=== PATIENT | female | born 1950 | race Caucasian/White ===

== ENCOUNTER 2019-08-20 16:05 | Inpatient (IN) | payer OTHER ==
--- NOTE | 2019-08-20 17:28 | PDOC ---
History of Present Illness - General Chief Complaint: Ingestion Stated Complaint: OVERDOSE Time Seen by Provider: 08/20/19 17:01 History Source: EMS, Custodial Records - History of Present Illness Initial Comments: 08/20/19 17:23 69 yo F PMH MDD w/ severe psychotic features, catatonia, Alzheimer's disease, chronic constipation, presenting after ingestion of Yankee candle fragrance sphere. Per EMS, they already contacted Poison Control, who stated that they would like the patient monitored for N/V. Patient nonverbal, unable to provide any information. Past History - Past Medical History Allergies/Adverse Reactions: Allergies Allergy/AdvReac Type Severity Reaction Status Date / Time No Known Allergies Allergy Verified 08/20/19 16:08 Home Medications: Ambulatory Orders Citalopram Hydrobromide [Citalopram HBr] 0.5 mg PO DAILY 08/20/19 Docusate Sodium [Colace] 300 mg PO DAILY 08/20/19 Multivit with Iron,Minerals [Complete Senior] 1 each PO DAILY 08/20/19 COPD: No Dementia: Yes Psychiatric Problems: Yes (PSYCHOSIS DISORDER/ ANXIETY) - Psycho Social/Smoking Cessation Hx Smoking History: Unknown if ever smoked Have you smoked in the past 12 months: No Information on smoking cessation initiated: No Hx Alcohol Use: No Drug/Substance Use Hx: No Review of Systems - Review of Systems Able to Perform ROS?: No (nonverbal) *Physical Exam - Vital Signs Last Vital Signs Temp Pulse Resp BP Pulse Ox 97 H 18 131/75 97 08/20/19 16:09 08/20/19 16:09 08/20/19 16:09 08/20/19 16:09 - Physical Exam Comments: 08/20/19 17:30 Gen: NAD, well-appearing Neuro: not participatory. Moves all limbs spontaneously, retracts to stimuli, opens eyes spontaneously. EOMI. PERRLA. 5/5 strength. HEENT: atraumatic, normocephalic Neck: supple, trachea midline CV: borderline tachy in 90s, regular rhythm Pulm: CTA b/l, however poor inspiratory cooperation Abd: soft, distended, non-tender Extr: no edema MSK: full ROM, 2+ pulses Skin: warm, dry ED Treatment Course - LABORATORY CBC & Chemistry Diagram: 08/21/19 06:35 08/21/19 06:35 Medical Decision Making - Medical Decision Making 08/20/19 17:22 Called [facility], was unable to get in touch with anyone who could provide collateral. Left a message, will await call back. 08/20/19 17:28 69 yo F PMH multiple psychiatric issues, chronic constipation, presenting after Yankee candle ingestion. - CBC, CMP 08/20/19 18:15 Patient with one episode of emesis. Spoke with Poison Control, requested EKG, salicylates, acetaminophen, alcohol. Otherwise stated to continue monitoring and supportive care. Left [phone] as call back number. 08/20/19 18:20 Poison Control called back, suggested CXR considering 1 episode of emesis and possible ingestion of essential oils. Will do so, continue to monitor. Discharge - Discharge Information Problems reviewed: Yes Clinical Impression/Diagnosis: Dementia Ingestion of foreign substance Qualifiers: Encounter type: initial encounter Qualified Code(s): T18.9XXA - Foreign body of alimentary tract, part unspecified, initial encounter Condition: Guarded - Admission No - Follow up/Referral - Patient Discharge Instructions - Post Discharge Activity
[2019-08-20 18:03] LABS: BASO % 2.2 % (0-2.0); EOS % 2.5 % (0-4.5); HEMATOCRIT 40.1 % (32.4-45.2); HEMOGLOBIN 12.9 GM/dL (10.7-15.3); LYMPH % 36.7 % (8-40); MCH 29.7 pg (25.7-33.7); MCHC 32.3 g/dl (32.0-36.0); MEAN CELL VOLUME 91.7 fl (80-96); MONO % 8.6 % (3.8-10.2); RBC 4.37 M/mm3 (3.60-5.2); WHITE BLOOD COUNT 11.5 K/mm3 (4.0-10.0)
--- NOTE | 2019-08-20 18:18 | PDOC ---
Attending Attestation - Resident Resident Name: WhittakerYfn mixon - ED Attending Attestation I have performed the following: I have examined & evaluated the patient, The case was reviewed & discussed with the resident, I agree w/resident's findings & plan, Exceptions are as noted - HPI HPI: 08/20/19 18:15 69 yo F with h/o major depression.w psychotic features constipation., catatonia , nonverbal at [facility] here after ingesting the oil in a [employer] oil air freshner wtih bead. draink the oil through the top screen. unsure exact time. no n/v since incident. no change to behavoir. no other ingestions. EMS contacted poison control and were told to have her observed . - Physicial Exam PE: 08/20/19 18:16 awake alert lungs PERRL. moist mucous membranes. clear bilat heart rrrno mrg abd soft obese, nontender. ext wwp. psych pt flat affect. not repsonding to questions. makes eye contact. nonverbal. does move all four ext. skin warm and dry. - Medical Decision Making 08/20/19 18:17 69 yo F catatonia, depression with psychosiss at [facility] here after ingestion oil from air freshner. will observe, basic labs. pt with emesis while in ed. given zofran, ekg ivf. Heart Score/ECG Review #1 General ECG Interpretation: Sinus Rhythm, Normal Rate (97), Normal Intervals, No acute ischemic changes
[2019-08-20 18:39] LABS: ALBUMIN 3.5 g/dl (3.4-5.0); ALK PHOS 105 U/L (45-117); ANION GAP 8 MMOL/L (8-16); BILIRUBIN,TOTAL 0.3 mg/dL (0.2-1); BLOOD UREA NITROGEN 20.3 mg/dL (7-18); CALCIUM 9.2 mg/dL (8.5-10.1); CHLORIDE 108 mmol/L (98-107); CO2 27 mmol/L (21-32); CREATININE 0.8 mg/dL (0.55-1.3); GLUCOSE,RANDOM 109 mg/dL (74-106); POTASSIUM 4.5 mmol/L (3.5-5.1); SGOT/AST 19 U/L (15-37); SGPT/ALT 26 U/L (13-61); SODIUM 143 mmol/L (136-145); TOT PROT 7.3 g/dl (6.4-8.2)
--- NOTE | 2019-08-20 19:32 | PDOC ---
History of Present Illness - General Chief Complaint: Ingestion Stated Complaint: OVERDOSE Time Seen by Provider: 08/20/19 17:01 Past History - Past Medical History Allergies/Adverse Reactions: Allergies Allergy/AdvReac Type Severity Reaction Status Date / Time No Known Allergies Allergy Verified 08/20/19 16:08 COPD: No Dementia: Yes Psychiatric Problems: Yes (PSYCHOSIS DISORDER/ ANXIETY) - Psycho Social/Smoking Cessation Hx Smoking History: Unknown if ever smoked Have you smoked in the past 12 months: No Information on smoking cessation initiated: No Hx Alcohol Use: No Drug/Substance Use Hx: No *Physical Exam - Vital Signs Last Vital Signs Temp Pulse Resp BP Pulse Ox 97 H 18 131/75 97 08/20/19 16:09 08/20/19 16:09 08/20/19 16:09 08/20/19 16:09 ED Treatment Course - LABORATORY CBC & Chemistry Diagram: 08/20/19 17:55 08/20/19 17:55 - ADDITIONAL ORDERS Additional order review: Laboratory Results 08/20/19 08/20/19 18:35 17:55 Sodium 143 Potassium 4.5 Chloride 108 H Carbon Dioxide 27 Anion Gap 8 BUN 20.3 H Creatinine 0.8 Est GFR (CKD-EPI)AfAm 86.57 Est GFR (CKD-EPI)NonAf 74.70 Random Glucose 109 H Calcium 9.2 Total Bilirubin 0.3 AST 19 ALT 26 Alkaline Phosphatase 105 Total Protein 7.3 Albumin 3.5 Salicylates < 1.7 L Acetaminophen --noresult-- Alcohol, Quantitative < 3.0 08/20/19 17:55 RBC 4.37 MCV 91.7 MCHC 32.3 RDW 14.0 Neutrophils % 50.0 Lymphocytes % 36.7 Monocytes % 8.6 Eosinophils % 2.5 Basophils % 2.2 H Medical Decision Making - Medical Decision Making Patient signed out by Dr. Whittaker 69 yo F PMH MDD w/ severe psychotic features, catatonia, Alzheimer's disease, chronic constipation, presenting after ingestion of Yankee candle fragrance sphere. Patient with episode of emesis while in the ED Pending EKG Plan for admission for post-ingestion observation 08/20/19 19:32 EKG: rate 97, Qtc 462, NSR, flattened t wave in leads III, avF, and V3, no prior EKGs Spoke with Anca TESFAYE Patient is a new resident and had arrived that morning as a Ground level resident Patient with witnessed ingestion of Yankee Candle Fragrance at 3pm Requested that they fax patient's facesheet and packet as my nurse does not have this information 08/20/19 20:37 Microblog sent for admission 08/20/19 20:42 Discussed case with CATIE Pichardo who accepted patient for telemetry admission under Dr. Vicki Sanchez 08/20/19 21:25 CATIE Pichardo requested change to med/surg from telemetry. Order revised 08/20/19 21:57 Discharge - Discharge Information Problems reviewed: Yes Clinical Impression/Diagnosis: Ingestion of foreign substance Qualifiers: Encounter type: initial encounter Qualified Code(s): T18.9XXA - Foreign body of alimentary tract, part unspecified, initial encounter Condition: Guarded - Admission Yes - Follow up/Referral - Patient Discharge Instructions - Post Discharge Activity
--- NOTE | 2019-08-20 21:34 | HP ---
Admitting History and Physical - Primary Care Physician PCP: Vicki Sanchez ([facility]) - Admission Chief Complaint: Ingestion of Chemical Substance History of Present Illness: 69 yo F with h/o major depression.w psychotic features constipation., catatonia , [facility] after ingesting the oil in a [employer] oil air freshner wtih bead. draink the oil through the top screen. unsure exact time. no n/v since incident. no change to behavoir. no other ingestions. EMS contacted poison control and were told to have her observed . 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 Psych: Yes: Depression, Psychosis (Catatonia) - Smoking History Smoking history: Unknown if ever smoked Have you smoked in the past 12 months: No - Alcohol/Substance Use Hx Alcohol Use: No - Social History Usual Living Arrangement: Yes: Skilled Nursing ADL: Support Services Home Medications - Allergies Allergies/Adverse Reactions: Allergies Allergy/AdvReac Type Severity Reaction Status Date / Time No Known Allergies Allergy Verified 08/20/19 16:08 - Home Medications Home Medications: Ambulatory Orders Citalopram Hydrobromide [Citalopram HBr] 0.5 mg PO DAILY 08/20/19 Docusate Sodium [Colace] 300 mg PO DAILY 08/20/19 Multivit with Iron,Minerals [Complete Senior] 1 each PO DAILY 08/20/19 Family Medical History Family History: Unable to Obtain Review of Systems Unable to obtain ROS, reason: Alzheimer Physical Examination Vital Signs: Vital Signs Temperature Pulse Rate 97 H 08/20/19 19:21 Respiratory Rate 17 08/20/19 19:21 Blood Pressure 121/98 08/20/19 19:21 O2 Sat by Pulse Oximetry (%) 95 08/20/19 19:21 Constitutional: Yes: No Distress, Calm Eyes: Yes: Conjunctiva Clear, PERRL HENT: Yes: WNL, Atraumatic, Normocephalic Neck: Yes: WNL, Supple, Trachea Midline Cardiovascular: Yes: WNL, Regular Rate and Rhythm, S1, S2 Respiratory: Yes: WNL, Regular, CTA Bilaterally Gastrointestinal: Yes: WNL, Normal Bowel Sounds, Soft Renal/: Yes: Incontinence Breast(s): Yes: WNL Musculoskeletal: Yes: WNL Extremities: Yes: WNL Edema: No Peripheral Pulses WNL: Yes Neurological: Yes: Other (catatonic) Labs: CBC, BMP 08/20/19 17:55 08/20/19 17:55 Imaging - Results Chest X-ray: Image Reviewed X-ray: Image Reviewed Assessment/Plan This is a 69 y/o woman admitted for Accidental Chemical Ingestion for further evaluation of their emergent condition. Plan: Admit M/S Monitor CBC, BMP Monitor vitals Chest Xray image- reviewed Abdominal Xray image reviewed IVF Neurochecks Poison Control contacted by ED staff NPO Heparin SQ Fall precautions Dispo: Requires Inpatient Care Visit type - Emergency Visit Emergency Visit: Yes ED Registration Date: 08/20/19 Care time: The patient presented to the Emergency Department on the above date and was hospitalized for further evaluation of their emergent condition. - New Patient This patient is new to me today: Yes Date on this admission: 08/20/19 - Critical Care Critical Care patient: No
[2019-08-20] MEDS: SODIUM CHLORIDE 1,000 ML IV SCH (23:20)
[2019-08-21 02:52] VITALS: BMI 26.2
[2019-08-21 07:02] LABS: BASO % 0.5 % (0-2.0); EOS % 0.6 % (0-4.5); HEMATOCRIT 38.4 % (32.4-45.2); HEMOGLOBIN 12.7 GM/dL (10.7-15.3); LYMPH % 24.7 % (8-40); MCH 30.4 pg (25.7-33.7); MCHC 33.1 g/dl (32.0-36.0); MEAN CELL VOLUME 91.7 fl (80-96); MEAN PLT VOLUME 9.4 fl (7.5-11.1); NEUT % 67.2 % (42.8-82.8); PLATELET COUNT 220 K/MM3 (134-434); RBC 4.19 M/mm3 (3.60-5.2); RDW 13.8 % (11.6-15.6); WHITE BLOOD COUNT 13.7 K/mm3 (4.0-10.0)
[2019-08-21 07:25] LABS: BLOOD UREA NITROGEN 15.2 mg/dL (7-18); CALCIUM 8.8 mg/dL (8.5-10.1); CREATININE 0.8 mg/dL (0.55-1.3); POTASSIUM 4.3 mmol/L (3.5-5.1)
[2019-08-21] MEDS ORDERED: PT OWN MED DRAWER 7, Y5N ONE (10:08)
--- NOTE | 2019-08-21 10:10 | PN ---
Progress Note (short form) - Note Progress Note: Events noted not in distress non verbal catatonia+ increased secretion in mouth O2 sat low Vital Signs - 24 hr 08/20/19 08/20/19 08/21/19 16:09 19:21 01:19 Temperature 99.9 F H Pulse Rate 97 H 110 H Pulse Rate [ 97 H Left Apical] Respiratory 18 17 18 Rate Blood Pressure 131/75 149/92 Blood Pressure 121/98 [Right Arm] O2 Sat by Pulse 97 95 Oximetry (%) 08/21/19 08/21/19 08/21/19 01:28 05:00 09:00 Temperature 99.9 F H 98.3 F 98.3 F Pulse Rate 111 H 102 H 94 H Pulse Rate [ Left Apical] Respiratory 20 20 18 Rate Blood Pressure 149/92 136/76 138/69 Blood Pressure [Right Arm] O2 Sat by Pulse Oximetry (%) 08/21/19 10:00 Temperature Pulse Rate Pulse Rate [ Left Apical] Respiratory Rate Blood Pressure Blood Pressure [Right Arm] O2 Sat by Pulse 98 Oximetry (%) Current Medications Generic Name Dose Route Start Last Admin Trade Name Freq PRN Reason Stop Dose Admin Sodium Chloride 1,000 mls @ 42 mls/hr 08/20/19 21:30 08/20/19 23:20 Normal Saline - IV 42 mls/hr ASDIR AILYN Administration Laboratory Results - last 24 hr 08/20/19 08/20/19 08/20/19 17:55 17:55 18:35 WBC 11.5 H RBC 4.37 Hgb 12.9 Hct 40.1 MCV 91.7 MCH 29.7 MCHC 32.3 RDW 14.0 Plt Count MPV Absolute Neuts (auto) 5.8 Neutrophils % 50.0 Lymphocytes % 36.7 Monocytes % 8.6 Eosinophils % 2.5 Basophils % 2.2 H Nucleated RBC % 0 Sodium 143 Potassium 4.5 Chloride 108 H Carbon Dioxide 27 Anion Gap 8 BUN 20.3 H Creatinine 0.8 Est GFR (CKD-EPI)AfAm 86.57 Est GFR (CKD-EPI)NonAf 74.70 Random Glucose 109 H Calcium 9.2 Total Bilirubin 0.3 AST 19 ALT 26 Alkaline Phosphatase 105 Total Protein 7.3 Albumin 3.5 Salicylates < 1.7 L Acetaminophen <2.0 Alcohol, Quantitative < 3.0 08/21/19 08/21/19 06:35 06:35 WBC 13.7 H RBC 4.19 Hgb 12.7 Hct 38.4 MCV 91.7 MCH 30.4 MCHC 33.1 RDW 13.8 Plt Count 220 MPV 9.4 Absolute Neuts (auto) 9.2 H Neutrophils % 67.2 D Lymphocytes % 24.7 D Monocytes % 7.0 Eosinophils % 0.6 Basophils % 0.5 Nucleated RBC % 0 Sodium 140 Potassium 4.3 Chloride 107 Carbon Dioxide 26 Anion Gap 7 L BUN 15.2 Creatinine 0.8 Est GFR (CKD-EPI)AfAm 86.57 Est GFR (CKD-EPI)NonAf 74.70 Random Glucose 96 Calcium 8.8 Total Bilirubin AST ALT Alkaline Phosphatase Total Protein Albumin Salicylates Acetaminophen Alcohol, Quantitative S1 S2 RRR Lungs decreased Abd- soft, NT no edema Gurgling in mouth+ PLAN start diet iv fluids iv zofran as needed resume psych meds has a low grade fever and decreased saturation-- R/o aspiration-- check a cxr today start o2 as needed nebs Problem List - Problems (1) Ingestion of foreign substance Code(s): T18.9XXA - FOREIGN BODY OF ALIMENTARY TRACT, PART UNSP, INIT ENCNTR Qualifiers: Encounter type: initial encounter Qualified Code(s): T18.9XXA - Foreign body of alimentary tract, part unspecified, initial encounter (2) Catatonia Code(s): F06.1 - CATATONIC DISORDER DUE TO KNOWN PHYSIOLOGICAL CONDITION (3) Depressed affect Code(s): R45.89 - OTHER SYMPTOMS AND SIGNS INVOLVING EMOTIONAL STATE (4) Dementia Code(s): F03.90 - UNSPECIFIED DEMENTIA WITHOUT BEHAVIORAL DISTURBANCE
[2019-08-21] MEDS ORDERED: CITALOPRAM HYDROBROMIDE 10 MG TABLET (FP) PO SCH (13:30)
[2019-08-21] MEDS ORDERED: ONDANSETRON 4 MG/2 ML VIAL IVPUSH PRN (13:34)
[2019-08-21] MEDS: CITALOPRAM HYDROBROMIDE 10 MG TABLET (FP) PO SCH (14:02)
--- NOTE | 2019-08-21 15:05 | EKG ---
Test Reason : Blood Pressure : / mmHG Vent. Rate : 097 BPM Atrial Rate : 097 BPM P-R Int : 142 ms QRS Dur : 084 ms QT Int : 364 ms P-R-T Axes : 014 053 018 degrees QTc Int : 462 ms NORMAL SINUS RHYTHM INFERIOR INFARCT , AGE UNDETERMINED ABNORMAL ECG NO PREVIOUS ECGS AVAILABLE Confirmed by OZ CACERES MD ([id number]) on 08/21/2019 3:04:48 PM Referred By: Confirmed By:OZ CACERES MD
[2019-08-21] MEDS: ALBUTEROL SO4 2.5/IPRATROPIUM 0.5 INH SOL 3 ML VIAL.NEB. NEB SCH ×2 (15:09→20:19)
[2019-08-21 19:33] LABS: EPI CELLS 0.9 /HPF (0-5/HPF); HYALINE CASTS 34 /lpf (0-8); URINE APPEARANCE CLOUDY; URINE BACTERIA 7033.4 /hpf (NEGATIVE); URINE BILIRUBIN NEGATIVE (NEGATIVE); URINE COLOR YELLOW; URINE GLUCOSE (UA) NEGATIVE (NEGATIVE); URINE KETONE NEGATIVE (NEGATIVE); URINE LEUK ESTERASE 2+ (NEGATIVE); URINE NITRITE POSITIVE (NEGATIVE); URINE PROTEIN NEGATIVE (NEGATIVE); URINE RBC 4 /hpf (0-4); URINE UROBILINOGEN 0.2 mg/dL (0.2-1.0); URINE WBC 66 /hpf (0-5)
[2019-08-21] MEDS ORDERED: VANCOMYCIN 1 GM in D5W (PRE-DOCKED) 1,000 MG/250 ML IVPB ONE (21:41)
[2019-08-21] MEDS ORDERED: SODIUM CHLORIDE 1,000 ML IV STA (22:38)
[2019-08-21] MEDS ORDERED: AZTREONAM 2 GM in DEXTROSE 5%-WATER 100 ML IVPB ONE (22:45)
--- NOTE | 2019-08-21 22:45 | HOSP ---
Subjective - Review of Symptoms Events since last encounter: Hospitalist Encounter Notified by the primary RN, that the patient is febrile and has allergies to acetaminophen and asa Patient currently being worked up for possible aspirate PNA Blood Cultures-pending Lactic Acid-pending Chest Xray image reviewed ? RLL infiltrate, official report- no acute pathology Assessment: This is a 69 y/o woman with Alzheimer's, Catatonia with Psychosis. Admitted for witnessed Ingestion of Chemical Substance. Plan: CT of Chest r/o Aspiration Pneumonia Will treat empirically with Vancomycin, Aztreonam and Flagyl PCN allergy Will need ID consult Physical Examination Vital Signs: Vital Signs Temperature 101.3 F H 08/21/19 21:12 Pulse Rate 124 H 08/21/19 16:57 Respiratory Rate 20 08/21/19 16:57 Blood Pressure 160/77 08/21/19 16:57 O2 Sat by Pulse Oximetry (%) 98 08/21/19 21:00 Constitutional: Yes: Other (catatonic/non-verbal: at baseline) Eyes: Yes: Conjunctiva Clear, PERRL HENT: Yes: WNL, Atraumatic, Normocephalic Neck: Yes: WNL, Supple, Trachea Midline Cardiovascular: Yes: Tachycardia, S1, S2 Respiratory: Yes: Rhonchi, Wheezes (scattered). No: Accessory Muscle Use Gastrointestinal: Yes: Soft, Hypoactive Bowel Sounds. No: Tenderness, Tenderness, Epigastrium Renal/: Yes: Incontinence Breast(s): Yes: WNL Musculoskeletal: Yes: WNL Extremities: Yes: WNL Edema: No Peripheral Pulses WNL: Yes Neurological: Yes: Other (Catatonic, Non-verbal: at baseline) Psychiatric: Yes: Other (non-verbal, Catatonic- baseline) Labs: CBC, BMP 08/21/19 06:35 08/21/19 06:35 Hospitalist Encounter Outcome: Lactic Acid 4.2 NS bolus ordered Will trend Lactic Acid Repeat Lactic 2.6 Fluid bolus 500ml ordered CT chest image reviewed infiltrates Will order CTAP with contrast concerned for perforation RN aware Call placed to next of kin, the patient's daughter, no answer left voice message to call back, awaiting call (permission to obtain CTAP with Contrast) [id number]- The patient's daughter Ms Lauryn Leblanc called regarding permission to do the CTAP with IV contrast, Ms Leblanc agreed. Discussed with the RN, who will call Leblanc for confirmation Lactic Acid pending with AM labs Critical Care Total Critical Care Time (in minutes): 35 Critical Care Statement: The care of this patient involved high complexity decision making to prevent further life threatening deterioration of the patient 's condition and/or to evaluate & treat vital organ system(s) failure or risk of failure.
[2019-08-21] MEDS: SODIUM CHLORIDE 1,000 ML IV SCH (23:28)
[2019-08-22] MEDS: SODIUM CHLORIDE 1,000 ML IV SCH (02:11)
[2019-08-22] MEDS ORDERED: SODIUM CHLORIDE 500 ML IV STA (04:28)
[2019-08-22 07:59] LABS: BASO % 0.4 % (0-2.0); EOS % 0.5 % (0-4.5); HEMATOCRIT 35.6 % (32.4-45.2); HEMOGLOBIN 11.9 GM/dL (10.7-15.3); LYMPH % 28.1 % (8-40); MCH 30.6 pg (25.7-33.7); MCHC 33.5 g/dl (32.0-36.0); MEAN CELL VOLUME 91.4 fl (80-96); MEAN PLT VOLUME 9.7 fl (7.5-11.1); MONO % 8.3 % (3.8-10.2); NEUT % 62.7 % (42.8-82.8); PLATELET COUNT 201 K/MM3 (134-434); RBC 3.89 M/mm3 (3.60-5.2); RDW 13.9 % (11.6-15.6); WHITE BLOOD COUNT 10.5 K/mm3 (4.0-10.0)
[2019-08-22] MEDS: ALBUTEROL SO4 2.5/IPRATROPIUM 0.5 INH SOL 3 ML VIAL.NEB. NEB SCH ×4 (08:10→20:14)
[2019-08-22 08:25] LABS: BLOOD UREA NITROGEN 11.1 mg/dL (7-18); CALCIUM 8.5 mg/dL (8.5-10.1); CREATININE 0.7 mg/dL (0.55-1.3); POTASSIUM 4.1 mmol/L (3.5-5.1)
--- NOTE | 2019-08-22 08:46 | PN ---
Progress Note (short form) - Note Progress Note: pt seen/ examined sitting in chair non verbal no distress Vital Signs Temp 98.6 F 08/22/19 05:00 Pulse 104 H 08/22/19 05:00 Resp 20 08/22/19 05:00 BP 146/77 08/22/19 05:00 Pulse Ox 98 08/21/19 21:00 Intake & Output 08/21/19 08/21/19 08/22/19 11:59 23:59 11:59 Intake Total 252 1100 1050 Balance 252 1100 1050 Weight 157 lb 4 oz Intake: IV 252 1100 600 Normal Saline - 1,000 ml 1000 @ 1000 mls/hr IV ASDIR STA Rx#:[id number] Normal Saline - 1,000 ml 252 100 100 @ 42 mls/hr IV ASDIR AILYN Rx#:[id number] Normal Saline - 500 ml @ 500 500 mls/hr IV ASDIR STA Rx#:[id number] IVPB 450 Oral 0 Other: Voiding Method Incontinent Incontinent # Unmeasured Voids Void 2 1 1 Bowel Movement No No No # Bowel Movements 2 Height 5 ft 5 in Body Mass Index (BMI) 26.2 Weight Measurement Method [facility] Active Medications Albuterol/Ipratropium (Duoneb -) 1 amp NEB RQID AILYN Last Admin: 08/21/19 20:19 Dose: 1 amp Citalopram Hydrobromide (Celexa -) 5 mg PO DAILY AILYN Last Admin: 08/21/19 14:02 Dose: 5 mg Sodium Chloride (Normal Saline -) 1,000 mls @ 42 mls/hr IV ASDIR AILYN Last Admin: 08/22/19 02:11 Dose: 42 mls/hr Metronidazole (Flagyl 500mg Premixed Ivpb -) 500 mg in 100 mls @ 100 mls/hr IVPB Q8H-IV AILYN Aztreonam 2 gm/ Dextrose 100 mls @ 100 mls/hr IVPB Q8H-IV AILYN; Protocol Stop: 08/22/19 18:59 Aztreonam 2 gm/ Dextrose 100 mls @ 100 mls/hr IVPB Q8H-IV AILYN; Protocol Ondansetron HCl (Zofran Injection) 4 mg IVPUSH Q4H PRN PRN Reason: NAUSEA AND/OR VOMITING Last Admin: 08/21/19 14:01 Dose: 4 mg Vancomycin HCl (Vancomycin (Pre-Docked)) 1,000 mg IVPB Q24H AILYN; Protocol CBC, BMP 08/22/19 07:12 08/22/19 07:12 ct chest - Acute Pneumonia Physical Exam awake/ non verbal S1 S2 RRR Lungs decreased Abd- soft, NT. no nathanael A/P Abx. advance diet cancel ct abd-- abdomen soft/ benign psych consult will follow d/w RN also.
[2019-08-22] MEDS: CITALOPRAM HYDROBROMIDE 10 MG TABLET (FP) PO SCH (09:29)
[2019-08-22] MEDS ORDERED: AZTREONAM 2 GM in DEXTROSE 5%-WATER 100 ML IVPB SCH (10:00)
--- NOTE | 2019-08-22 10:37 | CON.ID ---
Consult Consult Specialty:: infetious diseases Referred by:: Georgiana Reason for Consultation:: pneumonia,fever - History of Present Illness Chief Complaint: fever History of Present Illness: patient with multiple medical issues who is non verbal was send to the hospital because it seems she swallowed oil 69 yo F with h/o major depression.w psychotic features constipation., catatonia , nonverbal at [facility] here after ingesting the oil in a [employer] oil air freshner wtih bead. draink the oil through the top screen. unsure exact time. 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 Psych: Yes: Depression, Psychosis (Catatonia) - Alcohol/Substance Use Hx Alcohol Use: No - Smoking History Smoking history: Unknown if ever smoked Have you smoked in the past 12 months: No - Social History ADL: Support Services Home Medications - Allergies Allergies/Adverse Reactions: Allergies Allergy/AdvReac Type Severity Reaction Status Date / Time acetaminophen Allergy Verified 08/21/19 18:00 aspirin Allergy Verified 08/21/19 17:59 penicillin G Allergy Verified 08/21/19 17:58 procaine Allergy Verified 08/21/19 17:57 - Home Medications Home Medications: Ambulatory Orders Citalopram Hydrobromide [Citalopram HBr] 0.5 mg PO DAILY 08/20/19 Docusate Sodium [Colace] 300 mg PO DAILY 08/20/19 Multivit with Iron,Minerals [Complete Senior] 1 each PO DAILY 08/20/19 Review of Systems Unable to obtain ROS, reason: unable Physical Exam Vital Signs: Vital Signs Temperature 98.6 F 08/22/19 05:00 Pulse Rate 104 H 08/22/19 05:00 Respiratory Rate 20 08/22/19 05:00 Blood Pressure 146/77 08/22/19 05:00 O2 Sat by Pulse Oximetry (%) 98 08/21/19 21:00 Constitutional: Yes: Well Nourished, No Distress, Calm Cardiovascular: Yes: Regular Rate and Rhythm Respiratory: Yes: Regular, CTA Bilaterally Gastrointestinal: Yes: Normal Bowel Sounds, Soft Musculoskeletal: Yes: WNL Extremities: Yes: WNL Neurological: Yes: Alert, Oriented Psychiatric: Yes: Alert, Oriented Labs: CBC, BMP 08/22/19 07:12 08/22/19 07:12 Imaging - Results Chest X-ray: Report Reviewed, Image Reviewed Cat Scan: Report Reviewed, Image Reviewed Assessment/Plan Problem List - Problems (1) Ingestion of foreign substance Code(s): T18.9XXA - FOREIGN BODY OF ALIMENTARY TRACT, PART UNSP, INIT ENCNTR Qualifiers: Encounter type: initial encounter Qualified Code(s): T18.9XXA - Foreign body of alimentary tract, part unspecified, initial encounter (2) Catatonia Code(s): F06.1 - CATATONIC DISORDER DUE TO KNOWN PHYSIOLOGICAL CONDITION (3) Depressed affect Code(s): R45.89 - OTHER SYMPTOMS AND SIGNS INVOLVING EMOTIONAL STATE (4) Dementia Code(s): F03.90 - UNSPECIFIED DEMENTIA WITHOUT BEHAVIORAL DISTURBANCE 5 aspiration pneumonia fever lactic acidosis leukocytosis plan monitor closely --as patient puts thing in her mouth will continue azactam will stop vanco also will stop flagy rest as per the team
--- NOTE | 2019-08-22 17:45 | PN ---
Progress Note (short form) - Note Progress Note: Called to see 69yo client in bed, sleeping soundly, not easily aroused. She is currently not talking per RN Jenni history. Client is disorganised behaviour eating anything from her reach , in [place] drank candle oil. On iv antiobitics for chest infiltrate. Problem List - Problems (1) Dementia Code(s): F03.90 - UNSPECIFIED DEMENTIA WITHOUT BEHAVIORAL DISTURBANCE (2) Depressed affect Assessment/Plan: continue celexa 5mg per day. ( noted to sedate her) daughter is involved in her care as HCP. Safety is main concern , if not 1;1 , frequent rounds, REMOVE ALL FROM HER ROOM THAT may be a swallow/aspiration risk. Problems reviewed: Yes Code(s): R45.89 - OTHER SYMPTOMS AND SIGNS INVOLVING EMOTIONAL STATE
[2019-08-22] MEDS ORDERED: AZTREONAM 1 GM VIAL (RESTRICTED TO ID) ONE (17:49)
[2019-08-22] MEDS ORDERED: DEXTROSE 5%-WATER - 50 ML IVPB ONE (17:49)
[2019-08-22] MEDS: AZTREONAM 1 GM in DEXTROSE 5%-WATER - 50 ML IVPB SCH (18:05)
[2019-08-23] MEDS ORDERED: AZTREONAM 1 GM VIAL (RESTRICTED TO ID) ONE ×3 (00:09→16:59)
[2019-08-23] MEDS ORDERED: DEXTROSE 5%-WATER - 50 ML IVPB ONE ×3 (00:09→16:59)
[2019-08-23] MEDS ORDERED: VANCOMYCIN 1 GM in D5W (PRE-DOCKED) 1,000 MG/250 ML IVPB SCH (01:00)
[2019-08-23] MEDS: AZTREONAM 1 GM in DEXTROSE 5%-WATER - 50 ML IVPB SCH ×3 (01:29→17:01)
[2019-08-23] MEDS ORDERED: AZTREONAM 2 GM in DEXTROSE 5%-WATER 100 ML IVPB SCH (02:00)
[2019-08-23] MEDS: ALBUTEROL SO4 2.5/IPRATROPIUM 0.5 INH SOL 3 ML VIAL.NEB. NEB SCH ×4 (07:35→20:37)
--- NOTE | 2019-08-23 08:36 | PN ---
Progress Note, Physician History of Present Illness: stable no new issues - Current Medication List Current Medications: Active Medications Albuterol/Ipratropium (Duoneb -) 1 amp NEB RQID [facility] Last Admin: 08/22/19 20:14 Dose: 1 amp Citalopram Hydrobromide (Celexa -) 5 mg PO DAILY [facility] Last Admin: 08/22/19 09:29 Dose: 5 mg Sodium Chloride (Normal Saline -) 1,000 mls @ 42 mls/hr IV ASDIR [facility] Last Admin: 08/22/19 02:11 Dose: 42 mls/hr Aztreonam 1 gm/ Dextrose 50 mls @ 100 mls/hr IVPB Q8H-IV [facility]; Protocol Last Admin: 08/23/19 01:29 Dose: 100 mls/hr Ondansetron HCl (Zofran Injection) 4 mg IVPUSH Q4H PRN PRN Reason: NAUSEA AND/OR VOMITING Last Admin: 08/21/19 14:01 Dose: 4 mg - Objective Vital Signs: Vital Signs Temperature 97.8 F 08/23/19 06:00 Pulse Rate 84 08/23/19 06:00 Respiratory Rate 18 08/23/19 06:00 Blood Pressure 117/74 08/23/19 06:00 O2 Sat by Pulse Oximetry (%) 93 L 08/22/19 21:00 Constitutional: Yes: No Distress, Calm Cardiovascular: Yes: Regular Rate and Rhythm Respiratory: Yes: Regular, CTA Bilaterally Gastrointestinal: Yes: Normal Bowel Sounds, Soft Musculoskeletal: Yes: WNL Extremities: Yes: WNL Neurological: Yes: Alert Psychiatric: Yes: Other Labs: CBC, BMP 08/22/19 07:12 08/22/19 07:12 Assessment/Plan Problem List - Problems (1) Ingestion of foreign substance Code(s): T18.9XXA - FOREIGN BODY OF ALIMENTARY TRACT, PART UNSP, INIT ENCNTR Qualifiers: Encounter type: initial encounter Qualified Code(s): T18.9XXA - Foreign body of alimentary tract, part unspecified, initial encounter (2) Catatonia Code(s): F06.1 - CATATONIC DISORDER DUE TO KNOWN PHYSIOLOGICAL CONDITION (3) Depressed affect Code(s): R45.89 - OTHER SYMPTOMS AND SIGNS INVOLVING EMOTIONAL STATE (4) Dementia Code(s): F03.90 - UNSPECIFIED DEMENTIA WITHOUT BEHAVIORAL DISTURBANCE 5 aspiration pneumonia fever lactic acidosis leukocytosis plan continue azactam rest as per the team monitor wbc rest as per the team
--- NOTE | 2019-08-23 10:00 | PN ---
Progress Note (short form) - Note Progress Note: Events noted not in distress non verbal catatonia+ Vital Signs - 24 hr 08/22/19 08/22/19 08/22/19 13:00 18:12 21:00 Temperature 98.1 F 99.1 F Pulse Rate 100 H 77 Respiratory 20 20 Rate Blood Pressure 100/66 153/77 O2 Sat by Pulse 93 L Oximetry (%) 08/22/19 08/23/19 22:00 06:00 Temperature 99.0 F 97.8 F Pulse Rate 96 H 84 Respiratory 18 18 Rate Blood Pressure 147/73 117/74 O2 Sat by Pulse Oximetry (%) Current Medications Generic Name Dose Route Start Last Admin Trade Name Freq PRN Reason Stop Dose Admin Albuterol/Ipratropium 1 amp 08/21/19 13:45 08/23/19 07:35 Duoneb - NEB 1 amp RQID [facility] Administration Citalopram Hydrobromide 5 mg 08/21/19 13:30 08/22/19 09:29 Celexa - PO 5 mg DAILY [facility] Administration Sodium Chloride 1,000 mls @ 42 mls/hr 08/20/19 21:30 08/22/19 02:11 Normal Saline - IV 42 mls/hr ASDIR [facility] Administration Aztreonam 1 gm/ Dextrose 50 mls @ 100 mls/hr 08/22/19 18:00 08/23/19 01:29 IVPB 100 mls/hr Q8H-IV [facility] Administration Protocol Ondansetron HCl 4 mg 08/21/19 13:34 08/21/19 14:01 Zofran Injection IVPUSH 4 mg Q4H PRN Administration NAUSEA AND/OR VOMITING S1 S2 RRR Lungs decreased Abd- soft, NT no edema PLAN iv antibiotics aspiration precautions continue with meds psych eval appreciated Problem List - Problems (1) Ingestion of foreign substance Code(s): T18.9XXA - FOREIGN BODY OF ALIMENTARY TRACT, PART UNSP, INIT ENCNTR Qualifiers: Encounter type: initial encounter Qualified Code(s): T18.9XXA - Foreign body of alimentary tract, part unspecified, initial encounter (2) Catatonia Code(s): F06.1 - CATATONIC DISORDER DUE TO KNOWN PHYSIOLOGICAL CONDITION (3) Depressed affect Code(s): R45.89 - OTHER SYMPTOMS AND SIGNS INVOLVING EMOTIONAL STATE (4) Dementia Code(s): F03.90 - UNSPECIFIED DEMENTIA WITHOUT BEHAVIORAL DISTURBANCE (5) Aspiration pneumonia Code(s): J69.0 - PNEUMONITIS DUE TO INHALATION OF FOOD AND VOMIT
[2019-08-23] MEDS: CITALOPRAM HYDROBROMIDE 10 MG TABLET (FP) PO SCH (10:20)
[2019-08-23] MEDS: ENOXAPARIN NA (PORCINE) 40 MG/0.4 ML DISP.SYRIN SQ SCH (10:33)
[2019-08-24] MEDS ORDERED: AZTREONAM 1 GM VIAL (RESTRICTED TO ID) ONE ×3 (01:00→17:24)
[2019-08-24] MEDS ORDERED: DEXTROSE 5%-WATER - 50 ML IVPB ONE ×3 (01:00→17:24)
[2019-08-24] MEDS: AZTREONAM 1 GM in DEXTROSE 5%-WATER - 50 ML IVPB SCH ×3 (01:05→17:26)
[2019-08-24] MEDS: ALBUTEROL SO4 2.5/IPRATROPIUM 0.5 INH SOL 3 ML VIAL.NEB. NEB SCH ×4 (07:45→19:38)
--- NOTE | 2019-08-24 08:45 | PN ---
Progress Note, Physician History of Present Illness: stable no new issues - Current Medication List Current Medications: Active Medications Albuterol/Ipratropium (Duoneb -) 1 amp NEB RQID [facility] Last Admin: 08/24/19 07:45 Dose: Not Given Citalopram Hydrobromide (Celexa -) 5 mg PO DAILY [facility] Last Admin: 08/23/19 10:20 Dose: 5 mg Enoxaparin Sodium (Lovenox -) 40 mg SQ DAILY [facility] Last Admin: 08/23/19 10:33 Dose: 40 mg Sodium Chloride (Normal Saline -) 1,000 mls @ 42 mls/hr IV ASDIR [facility] Last Admin: 08/22/19 02:11 Dose: 42 mls/hr Aztreonam 1 gm/ Dextrose 50 mls @ 100 mls/hr IVPB Q8H-IV [facility]; Protocol Last Admin: 08/24/19 01:05 Dose: 100 mls/hr Ondansetron HCl (Zofran Injection) 4 mg IVPUSH Q4H PRN PRN Reason: NAUSEA AND/OR VOMITING Last Admin: 08/21/19 14:01 Dose: 4 mg - Objective Vital Signs: Vital Signs Temperature 97.9 F 08/24/19 05:00 Pulse Rate 83 08/24/19 05:00 Respiratory Rate 20 08/24/19 05:00 Blood Pressure 121/84 08/24/19 05:00 O2 Sat by Pulse Oximetry (%) 93 L 08/23/19 21:00 Constitutional: Yes: No Distress, Calm, Other (n on verbal) Cardiovascular: Yes: S1, S2 Respiratory: Yes: Regular, CTA Bilaterally Gastrointestinal: Yes: Normal Bowel Sounds, Soft Musculoskeletal: Yes: WNL Extremities: Yes: WNL Neurological: Yes: Alert, Other Psychiatric: Yes: Alert, Other Labs: CBC, BMP 08/22/19 07:12 08/22/19 07:12 Assessment/Plan Problem List - Problems (1) Ingestion of foreign substance Code(s): T18.9XXA - FOREIGN BODY OF ALIMENTARY TRACT, PART UNSP, INIT ENCNTR Qualifiers: Encounter type: initial encounter Qualified Code(s): T18.9XXA - Foreign body of alimentary tract, part unspecified, initial encounter (2) Catatonia Code(s): F06.1 - CATATONIC DISORDER DUE TO KNOWN PHYSIOLOGICAL CONDITION (3) Depressed affect Code(s): R45.89 - OTHER SYMPTOMS AND SIGNS INVOLVING EMOTIONAL STATE (4) Dementia Code(s): F03.90 - UNSPECIFIED DEMENTIA WITHOUT BEHAVIORAL DISTURBANCE 5 aspiration pneumonia fever lactic acidosis leukocytosis plan continue azactam rest as per the team monitor wbc rest as per the team
--- NOTE | 2019-08-24 09:24 | PN ---
Progress Note (short form) - Note Progress Note: Events noted not in distress non verbal catatonia+ Vital Signs - 24 hr 08/23/19 08/23/19 08/24/19 19:46 21:00 05:00 Temperature 98.8 F 97.9 F Pulse Rate 90 83 Respiratory 22 H 22 H 20 Rate Blood Pressure 170/83 121/84 O2 Sat by Pulse 93 L Oximetry (%) 08/24/19 09:00 Temperature 98.5 F Pulse Rate 74 Respiratory 20 Rate Blood Pressure 124/60 O2 Sat by Pulse 93 L Oximetry (%) Current Medications Generic Name Dose Route Start Last Admin Trade Name Freq PRN Reason Stop Dose Admin Albuterol/Ipratropium 1 amp 08/21/19 13:45 08/24/19 16:14 Duoneb - NEB Not Given RQID [facility] Citalopram Hydrobromide 5 mg 08/21/19 13:30 08/24/19 10:05 Celexa - PO Not Given DAILY [facility] Enoxaparin Sodium 40 mg 08/23/19 10:15 08/24/19 10:02 Lovenox - SQ 40 mg DAILY [facility] Administration Sodium Chloride 1,000 mls @ 42 mls/hr 08/20/19 21:30 08/24/19 10:10 Normal Saline - IV 42 mls/hr ASDIR [facility] Administration Aztreonam 1 gm/ Dextrose 50 mls @ 100 mls/hr 08/22/19 18:00 08/24/19 17:26 IVPB 100 mls/hr Q8H-IV [facility] Administration Protocol Ondansetron HCl 4 mg 08/21/19 13:34 08/21/19 14:01 Zofran Injection IVPUSH 4 mg Q4H PRN Administration NAUSEA AND/OR VOMITING Laboratory Results - last 24 hr 08/24/19 13:21 WBC 6.6 RBC 3.80 Hgb 11.6 Hct 34.8 MCV 91.7 MCH 30.4 MCHC 33.2 RDW 14.0 Plt Count 230 MPV 9.6 Microbiology 08/21/19 18:45 Urine Culture - Final Urine - Urine - Catheterized Escherichia Coli 08/21/19 21:00 Blood Culture - Preliminary Blood - Peripheral Venous NO GROWTH OBTAINED AFTER 48 HOURS, INCUBATION TO CONTINUE FOR 3 DAYS. 08/21/19 21:00 Blood Culture - Preliminary Blood - Peripheral Venous NO GROWTH OBTAINED AFTER 48 HOURS, INCUBATION TO CONTINUE FOR 3 DAYS. S1 S2 RRR Lungs decreased Abd- soft, NT no edema PLAN iv antibiotics aspiration precautions continue with meds psych eval appreciated afebrile clinically better dc planning Problem List - Problems (1) Ingestion of foreign substance Code(s): T18.9XXA - FOREIGN BODY OF ALIMENTARY TRACT, PART UNSP, INIT ENCNTR Qualifiers: Encounter type: initial encounter Qualified Code(s): T18.9XXA - Foreign body of alimentary tract, part unspecified, initial encounter (2) Catatonia Code(s): F06.1 - CATATONIC DISORDER DUE TO KNOWN PHYSIOLOGICAL CONDITION (3) Depressed affect Code(s): R45.89 - OTHER SYMPTOMS AND SIGNS INVOLVING EMOTIONAL STATE (4) Dementia Code(s): F03.90 - UNSPECIFIED DEMENTIA WITHOUT BEHAVIORAL DISTURBANCE (5) Aspiration pneumonia Code(s): J69.0 - PNEUMONITIS DUE TO INHALATION OF FOOD AND VOMIT
[2019-08-24] MEDS: ENOXAPARIN NA (PORCINE) 40 MG/0.4 ML DISP.SYRIN SQ SCH (10:02)
[2019-08-24] MEDS: CITALOPRAM HYDROBROMIDE 10 MG TABLET (FP) PO SCH ×2 (10:02→10:05)
[2019-08-24] MEDS: SODIUM CHLORIDE 1,000 ML IV SCH (10:10)
[2019-08-24 13:38] LABS: HEMATOCRIT 34.8 % (32.4-45.2); HEMOGLOBIN 11.6 GM/dL (10.7-15.3); MCH 30.4 pg (25.7-33.7); MCHC 33.2 g/dl (32.0-36.0); MEAN CELL VOLUME 91.7 fl (80-96); MEAN PLT VOLUME 9.6 fl (7.5-11.1); PLATELET COUNT 230 K/MM3 (134-434); WHITE BLOOD COUNT 6.6 K/mm3 (4.0-10.0)
[2019-08-25] MEDS ORDERED: AZTREONAM 1 GM VIAL (RESTRICTED TO ID) ONE ×3 (00:54→17:38)
[2019-08-25] MEDS ORDERED: DEXTROSE 5%-WATER - 50 ML IVPB ONE ×3 (00:54→17:38)
[2019-08-25] MEDS: AZTREONAM 1 GM in DEXTROSE 5%-WATER - 50 ML IVPB SCH ×3 (01:05→18:02)
[2019-08-25 07:38] LABS: HEMATOCRIT 36.2 % (32.4-45.2); MCH 30.4 pg (25.7-33.7); MCHC 33.1 g/dl (32.0-36.0); MEAN CELL VOLUME 91.7 fl (80-96); MEAN PLT VOLUME 9.6 fl (7.5-11.1); PLATELET COUNT 254 K/MM3 (134-434); RBC 3.95 M/mm3 (3.60-5.2); RDW 13.7 % (11.6-15.6); WHITE BLOOD COUNT 7.2 K/mm3 (4.0-10.0)
[2019-08-25] MEDS: ALBUTEROL SO4 2.5/IPRATROPIUM 0.5 INH SOL 3 ML VIAL.NEB. NEB SCH ×4 (07:40→20:15)
[2019-08-25] MEDS: CITALOPRAM HYDROBROMIDE 10 MG TABLET (FP) PO SCH (09:31)
[2019-08-25] MEDS: ENOXAPARIN NA (PORCINE) 40 MG/0.4 ML DISP.SYRIN SQ SCH (09:31)
--- NOTE | 2019-08-25 10:35 | PN ---
Progress Note, Physician History of Present Illness: patient looks much better calm - Current Medication List Current Medications: Active Medications Albuterol/Ipratropium (Duoneb -) 1 amp NEB RQID [facility] Last Admin: 08/25/19 07:40 Dose: 1 amp Citalopram Hydrobromide (Celexa -) 5 mg PO DAILY [facility] Last Admin: 08/25/19 09:31 Dose: 5 mg Enoxaparin Sodium (Lovenox -) 40 mg SQ DAILY [facility] Last Admin: 08/25/19 09:31 Dose: 40 mg Sodium Chloride (Normal Saline -) 1,000 mls @ 42 mls/hr IV ASDIR [facility] Last Admin: 08/24/19 10:10 Dose: 42 mls/hr Aztreonam 1 gm/ Dextrose 50 mls @ 100 mls/hr IVPB Q8H-IV [facility]; Protocol Last Admin: 08/25/19 09:31 Dose: 100 mls/hr Ondansetron HCl (Zofran Injection) 4 mg IVPUSH Q4H PRN PRN Reason: NAUSEA AND/OR VOMITING Last Admin: 08/21/19 14:01 Dose: 4 mg - Objective Vital Signs: Vital Signs Temperature 97.9 F 08/25/19 05:38 Pulse Rate 86 08/25/19 05:38 Respiratory Rate 20 08/25/19 05:38 Blood Pressure 114/63 08/25/19 05:38 O2 Sat by Pulse Oximetry (%) 93 L 08/24/19 09:00 Constitutional: Yes: No Distress, Calm Cardiovascular: Yes: S1, S2 Respiratory: Yes: Regular, CTA Bilaterally Gastrointestinal: Yes: Normal Bowel Sounds, Soft Musculoskeletal: Yes: WNL Extremities: Yes: WNL Neurological: Yes: Alert, Other Psychiatric: Yes: Alert Labs: CBC, BMP 08/25/19 06:20 08/22/19 07:12 Assessment/Plan Problem List - Problems (1) Ingestion of foreign substance Code(s): T18.9XXA - FOREIGN BODY OF ALIMENTARY TRACT, PART UNSP, INIT ENCNTR Qualifiers: Encounter type: initial encounter Qualified Code(s): T18.9XXA - Foreign body of alimentary tract, part unspecified, initial encounter (2) Catatonia Code(s): F06.1 - CATATONIC DISORDER DUE TO KNOWN PHYSIOLOGICAL CONDITION (3) Depressed affect Code(s): R45.89 - OTHER SYMPTOMS AND SIGNS INVOLVING EMOTIONAL STATE (4) Dementia Code(s): F03.90 - UNSPECIFIED DEMENTIA WITHOUT BEHAVIORAL DISTURBANCE 5 aspiration pneumonia fever lactic acidosis leukocytosis plan can change to levaquin for couple of days rest as per the team
--- NOTE | 2019-08-25 14:39 | PN ---
Progress Note (short form) - Note Progress Note: awake/ comfortable sitting in chair afebrile chart reviewed catatonic Vital Signs Temp 97.6 F 08/25/19 11:00 Pulse 80 08/25/19 11:00 Resp 18 08/25/19 11:00 BP 120/64 08/25/19 11:00 Pulse Ox 95 08/25/19 09:00 Intake & Output 08/24/19 08/25/19 08/25/19 23:59 11:59 23:59 Intake Total 704 554 Balance 704 554 Intake: IV 294 504 Normal Saline - 1,000 ml 294 504 @ 42 mls/hr IV ASDIR [facility] Rx#:[id number] IVPB 50 50 Oral 360 Other: Voiding Method Incontinent Incontinent # Unmeasured Voids Void 1 1 Bowel Movement Yes # Bowel Movements 1 Active Medications Albuterol/Ipratropium (Duoneb -) 1 amp NEB RQID [facility] Last Admin: 08/25/19 11:35 Dose: 1 amp Citalopram Hydrobromide (Celexa -) 5 mg PO DAILY [facility] Last Admin: 08/25/19 09:31 Dose: 5 mg Enoxaparin Sodium (Lovenox -) 40 mg SQ DAILY [facility] Last Admin: 08/25/19 09:31 Dose: 40 mg Sodium Chloride (Normal Saline -) 1,000 mls @ 42 mls/hr IV ASDIR [facility] Last Admin: 08/24/19 10:10 Dose: 42 mls/hr Aztreonam 1 gm/ Dextrose 50 mls @ 100 mls/hr IVPB Q8H-IV [facility]; Protocol Last Admin: 08/25/19 09:31 Dose: 100 mls/hr Ondansetron HCl (Zofran Injection) 4 mg IVPUSH Q4H PRN PRN Reason: NAUSEA AND/OR VOMITING Last Admin: 08/21/19 14:01 Dose: 4 mg CBC, BMP 08/25/19 06:20 08/22/19 07:12 Microbiology 08/21/19 21:00 Blood Culture - Preliminary Blood - Peripheral Venous NO GROWTH OBTAINED AFTER 72 HOURS, INCUBATION TO CONTINUE FOR 2 DAYS. 08/21/19 21:00 Blood Culture - Preliminary Blood - Peripheral Venous NO GROWTH OBTAINED AFTER 72 HOURS, INCUBATION TO CONTINUE FOR 2 DAYS. u/c -- E coli Physical S1 S2 RRR Lungs decreased Abd- soft, NT no edema PLAN iv antibiotics aspiration precautions continue with meds psych eval appreciated afebrile clinically better dc planning d/w i/d -- E coli - resistant to Levaquin and pt allergic to PCn Advised to continue same for now Will follow d/w RN Also Problem List - Problems (1) UTI (urinary tract infection) Code(s): N39.0 - URINARY TRACT INFECTION, SITE NOT SPECIFIED
[2019-08-26] MEDS ORDERED: AZTREONAM 1 GM VIAL (RESTRICTED TO ID) ONE ×2 (00:16→09:05)
[2019-08-26] MEDS ORDERED: DEXTROSE 5%-WATER - 50 ML IVPB ONE ×2 (00:17→09:05)
[2019-08-26] MEDS: AZTREONAM 1 GM in DEXTROSE 5%-WATER - 50 ML IVPB SCH ×2 (01:25→10:02)
[2019-08-26] MEDS: ALBUTEROL SO4 2.5/IPRATROPIUM 0.5 INH SOL 3 ML VIAL.NEB. NEB SCH (07:25)
[2019-08-26] MEDS: CITALOPRAM HYDROBROMIDE 10 MG TABLET (FP) PO SCH (10:02)
[2019-08-26] MEDS: ENOXAPARIN NA (PORCINE) 40 MG/0.4 ML DISP.SYRIN SQ SCH (10:02)
--- NOTE | 2019-08-26 11:32 | PN ---
Progress Note, Physician History of Present Illness: stable no new issues developed rash - Current Medication List Current Medications: Active Medications Albuterol/Ipratropium (Duoneb -) 1 amp NEB RQID [facility] Last Admin: 08/26/19 07:25 Dose: 1 amp Citalopram Hydrobromide (Celexa -) 5 mg PO DAILY [facility] Last Admin: 08/26/19 10:02 Dose: 5 mg Enoxaparin Sodium (Lovenox -) 40 mg SQ DAILY [facility] Last Admin: 08/26/19 10:02 Dose: 40 mg Aztreonam 1 gm/ Dextrose 50 mls @ 100 mls/hr IVPB Q8H-IV [facility]; Protocol Last Admin: 08/26/19 10:02 Dose: 100 mls/hr Ondansetron HCl (Zofran Injection) 4 mg IVPUSH Q4H PRN PRN Reason: NAUSEA AND/OR VOMITING Last Admin: 08/21/19 14:01 Dose: 4 mg - Objective Vital Signs: Vital Signs Temperature 98.1 F 08/26/19 07:09 Pulse Rate 83 08/26/19 07:09 Respiratory Rate 20 08/26/19 07:09 Blood Pressure 125/76 08/26/19 07:09 O2 Sat by Pulse Oximetry (%) 95 08/25/19 21:00 Constitutional: Yes: No Distress, Calm Cardiovascular: Yes: Regular Rate and Rhythm Respiratory: Yes: Regular, CTA Bilaterally Gastrointestinal: Yes: Normal Bowel Sounds, Soft Musculoskeletal: Yes: WNL Extremities: Yes: WNL Integumentary: Yes: Rash (on the back probably contact) Neurological: Yes: Alert, Other Psychiatric: Yes: Other Labs: CBC, BMP 08/25/19 06:20 08/22/19 07:12 Assessment/Plan Problem List - Problems (1) Ingestion of foreign substance Code(s): T18.9XXA - FOREIGN BODY OF ALIMENTARY TRACT, PART UNSP, INIT ENCNTR Qualifiers: Encounter type: initial encounter Qualified Code(s): T18.9XXA - Foreign body of alimentary tract, part unspecified, initial encounter (2) Catatonia Code(s): F06.1 - CATATONIC DISORDER DUE TO KNOWN PHYSIOLOGICAL CONDITION (3) Depressed affect Code(s): R45.89 - OTHER SYMPTOMS AND SIGNS INVOLVING EMOTIONAL STATE (4) Dementia Code(s): F03.90 - UNSPECIFIED DEMENTIA WITHOUT BEHAVIORAL DISTURBANCE 5 aspiration pneumonia fever lactic acidosis leukocytosis plan can stop abx now monitor rash
--- NOTE | 2019-08-26 12:19 | DS ---
Physical Examination Vital Signs: Vital Signs Temperature 98.1 F 08/26/19 07:09 Pulse Rate 83 08/26/19 07:09 Respiratory Rate 20 08/26/19 07:09 Blood Pressure 125/76 08/26/19 07:09 O2 Sat by Pulse Oximetry (%) 95 08/25/19 21:00 Constitutional: Yes: No Distress, Calm Cardiovascular: Yes: Regular Rate and Rhythm Respiratory: Yes: CTA Bilaterally Gastrointestinal: Yes: Normal Bowel Sounds, Soft. No: Tenderness Extremities: Yes: Other (rash on buttocks) Edema: No Labs: CBC, BMP 08/25/19 06:20 08/22/19 07:12 Discharge Summary Problems reviewed: Yes Reason For Visit: INGESTION OF FOREIGN SUBSTANCE Current Active Problems Aspiration pneumonia (Acute) Catatonia (Acute) Dementia (Acute) Depressed affect (Acute) Ingestion of foreign substance (Acute) UTI (urinary tract infection) (Acute) Hospital Course: - Admission Chief Complaint: Ingestion of Chemical Substance History of Present Illness: 69 yo F with h/o major depression.w psychotic features constipation., catatonia , [facility] 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 drank the oil through the top screen. unsure exact time. no n/v since incident. no change to behavior. no other ingestions. EMS contacted poison control and were told to have her observed . Hospital course Pt developed fever CXR -- possible aspiration Seen by ID and psychiatry started on iv antibiotics cultures negative urine culture positive-- but no need to treat per ID completed antibiotics stable for dc to [facility] Condition: Good - Instructions Disposition: [facility] - Home Medications Comprehensive Discharge Medication List: Ambulatory Orders Citalopram Hydrobromide [Citalopram HBr] 0.5 mg PO DAILY 08/20/19 Docusate Sodium [Colace] 300 mg PO DAILY 08/20/19 Multivit with Iron,Minerals [Complete Senior] 1 each PO DAILY 08/20/19
[2019-08-26 12:41] VITALS: BP 123/85; PULSE 82; TEMP 97.6
== END 2019-08-26 14:00 | DRG 871 ==
LOC: JER 16:05 → JERBED 21:24 → J8W 08-21 00:13
PROVIDERS: ADMIT Internal Medicine; ATTEND Internal Medicine
DX: A41.9 Sepsis, unspecified organism (principal); J69.0 Pneumonitis due to inhalation of food and vomit; F32.3 Major depressive disorder, single episode, severe with psychotic features; E87.2 Acidosis; N39.0 Urinary tract infection, site not specified; T18.8XXA Foreign body in other parts of alimentary tract, initial encounter; F06.1 Catatonic disorder due to known physiological condition; G30.9 Alzheimer's disease, unspecified; F02.80 Dementia in other diseases classified elsewhere, unspecified severity, without behavioral disturbance, psychotic disturbance, mood disturbance, and anxiety; F29 Unspecified psychosis not due to a substance or known physiological condition; K59.00 Constipation, unspecified; Z88.0 Allergy status to penicillin; X58.XXXA Exposure to other specified factors, initial encounter; Y93.89 Activity, other specified; Y92.128 Other place in nursing home as the place of occurrence of the external cause; Y99.8 Other external cause status
CPT/HCPCS: 36415; 71045-TC-FY; 71250-TC; 74018-TC-FY; 80048; 80053; 80307; 81003; 83605; 85025; 85027; 87040; 87086; 87186; 93005; 93010; 94640; 99284-25; G0480; J7030

== ENCOUNTER 2021-12-27 17:02 | Inpatient (IN) | payer OTHER ==
[2021-12-27] MEDS ORDERED: CLINDAMYCIN 600MG PREMIX IVPB 600 MG/50 ML BAG IVPB ONE ×2 (18:01→18:15)
[2021-12-27] MEDS ORDERED: CEFTRIAXONE 1,000 MG in DEXTROSE 5%-WATER - 50 ML IVPB ONE (18:01)
[2021-12-27] MEDS ORDERED: CEFTRIAXONE 1 GM/50 ML BAG ONE (18:15)
[2021-12-27 19:07] LABS: VENOUS BASE EXCESS 0.7 mmol/L (-2-2); VENOUS O2 SATURATION 98.5 % (70-80); VENOUS PCO2 29.8 mmHg (38-52); VENOUS PH 7.506 (7.310-7.410)
[2021-12-27 19:24] LABS: BASO % 0.6 % (0-2.0); EOS % 1.6 % (0-4.5); HEMATOCRIT 32.6 % (32.4-45.2); HEMOGLOBIN 10.8 GM/dL (10.7-15.3); LYMPH % 27.7 % (8-40); MEAN PLT VOLUME 9.8 fl (7.5-11.1); MONO % 7.2 % (3.8-10.2); NEUT % 62.9 % (42.8-82.8); PLATELET COUNT 307 10^3/uL (134-434); RBC 3.58 M/mm3 (3.60-5.2); RDW 14.2 % (11.6-15.6); WHITE BLOOD COUNT 10.7 K/mm3 (4.0-10.0)
[2021-12-27 19:31] LABS: INR 1.6 (0.83-1.09); PROTHROMBIN TIME (PATIENT) 18.5 SEC (9.7-13.0)
[2021-12-27 19:33] LABS: ACTIVATED PTT 31.6 SECONDS (25.2-36.5)
[2021-12-27 19:35] LABS: LACTIC ACID 2.3 mmol/L (0.4-2.0)
[2021-12-27 19:38] LABS: CHLORIDE 108 mmol/L (98-107); SODIUM 143 mmol/L (136-145)
[2021-12-27 19:40] LABS: CALCIUM 9.2 mg/dL (8.5-10.1)
[2021-12-27 19:41] LABS: ALBUMIN 2.8 g/dl (3.4-5.0); ANION GAP 6 MMOL/L (8-16); CO2 29 mmol/L (21-32); GLUCOSE,RANDOM 133 mg/dL (74-106)
[2021-12-27 19:44] LABS: CREATININE 0.6 mg/dL (0.55-1.3); SGOT/AST 16 U/L (15-37); SGPT/ALT 18 U/L (13-61)
[2021-12-27 19:45] LABS: BILIRUBIN,TOTAL 0.1 mg/dL (0.2-1); TOT PROT 6.2 g/dl (6.4-8.2)
[2021-12-27 19:46] LABS: ALK PHOS 94 U/L (45-117)
[2021-12-27] MEDS ORDERED: LACTATED RINGERS SOLUTION 1000 ML INFUS.BAG IV ONE (19:46)
[2021-12-27] MEDS ORDERED: DOCUSATE SODIUM 100 MG CAPSULE (FP) PO SCH (22:00)
[2021-12-27] MEDS ORDERED: CITALOPRAM HYDROBROMIDE 10 MG TABLET PO SCH (22:00)
[2021-12-27] MEDS ORDERED: MUPIROCIN CA 2% TOPICAL CREAM 15 GM TUBE TP SCH (22:00)
[2021-12-27] MEDS ORDERED: DOCUSATE SODIUM 100 MG CAPSULE (FP) PO ONE (23:43)
[2021-12-27] MEDS ORDERED: CITALOPRAM HYDROBROMIDE 10 MG TABLET ONE (23:43)
[2021-12-27] MEDS: DEXTROSE 5%-NORMAL SALINE 1,000 ML IV SCH (23:52)
[2021-12-28] MEDS ORDERED: CLINDAMYCIN 600MG PREMIX IVPB 600 MG/50 ML BAG IVPB ONE (02:12)
[2021-12-28] MEDS: CLINDAMYCIN 600MG PREMIX IVPB 600 MG/50 ML BAG IVPB SCH ×3 (02:26→17:56)
[2021-12-28] MEDS ORDERED: LEVOTHYROXINE NA 25 MCG TABLET (FP) PO SCH ×2 (07:00)
[2021-12-28] MEDS ORDERED: MULTIVITAMINS THER W-MINERALS COMBO TABLET (FP) PO SCH ×2 (10:00)
[2021-12-28] MEDS ORDERED: ASCORBIC ACID 500 MG TABLET (FP) PO SCH ×2 (10:00)
[2021-12-28 10:16] LABS: BASO % 0.5 % (0-2.0); EOS % 1.8 % (0-4.5); HEMOGLOBIN 10.1 GM/dL (10.7-15.3); LYMPH % 27.4 % (8-40); MCH 30.3 pg (25.7-33.7); MCHC 33.5 g/dl (32.0-36.0); MEAN CELL VOLUME 90.4 fl (80-96); MEAN PLT VOLUME 9.4 fl (7.5-11.1); MONO % 8.7 % (3.8-10.2); NEUT % 61.6 % (42.8-82.8); PLATELET COUNT 259 10^3/uL (134-434); RBC 3.32 M/mm3 (3.60-5.2); RDW 14.3 % (11.6-15.6); WHITE BLOOD COUNT 8.6 K/mm3 (4.0-10.0)
[2021-12-28 10:37] LABS: BLOOD UREA NITROGEN 21.5 mg/dL (7-18); CALCIUM 8.6 mg/dL (8.5-10.1); MAGNESIUM 2.2 mg/dL (1.8-2.4)
[2021-12-28] MEDS: MUPIROCIN CA 2% TOPICAL CREAM 15 GM TUBE TP SCH ×2 (11:05→22:33)
[2021-12-28] MEDS: ZINC OXIDE 20% TOPICAL OINTMENT 30 GM TUBE TP SCH ×2 (11:07→22:35)
[2021-12-28 13:07] LABS: ERYTHROCYTE SEDIMENTATION RATE 56 mm/hr (0-30)
[2021-12-28] MEDS ORDERED: DEXTROSE 5%-WATER - 50 ML IVPB ONE ×2 (14:55→16:59)
[2021-12-28] MEDS ORDERED: cefTRIAXone SODIUM 1 GM VIAL ONE ×2 (14:55→16:59)
[2021-12-28] MEDS: LEVOTHYROXINE SODIUM 100 MCG VIAL IVPUSH SCH (15:02)
[2021-12-28] MEDS ORDERED: CEFTRIAXONE 1 GM in DEXTROSE 5%-WATER - 50 ML IVPB ONE (15:23)
[2021-12-28] MEDS ORDERED: CEFTRIAXONE 1 GM in DEXTROSE 5%-WATER - 50 ML IVPB SCH (16:00)
[2021-12-28] MEDS: DEXTROSE 5%-NORMAL SALINE 1,000 ML IV SCH (16:10)
[2021-12-28 17:56] LABS: CREATININE 0.5 mg/dL (0.55-1.3)
[2021-12-29] MEDS: CLINDAMYCIN 600MG PREMIX IVPB 600 MG/50 ML BAG IVPB SCH ×3 (04:07→18:21)
[2021-12-29] MEDS: DEXTROSE 5%-NORMAL SALINE 1,000 ML IV SCH ×2 (07:44→17:47)
[2021-12-29] MEDS ORDERED: ENOXAPARIN NA (PORCINE) 40 MG/0.4 ML DISP.SYRIN SQ SCH (10:00)
[2021-12-29] MEDS ORDERED: DEXTROSE 5%-WATER 100 ML IVPB ONE (10:05)
[2021-12-29] MEDS: LEVOTHYROXINE SODIUM 100 MCG VIAL IVPUSH SCH (10:24)
[2021-12-29] MEDS: CEFTRIAXONE 2 GM in DEXTROSE 5%-WATER 100 ML IVPB SCH (11:06)
[2021-12-29] MEDS: MUPIROCIN CA 2% TOPICAL CREAM 15 GM TUBE TP SCH (11:07)
[2021-12-29] MEDS: ACETAMINOPHEN 650 MG/20.3 ML ORAL SOLUTION (CUPS) PO PRN (13:00)
[2021-12-29] MEDS: COLLAGENASE CLOSTRIDIUM HIST. 30 GRAMS TUBE TP SCH (14:44)
[2021-12-29] MEDS: ZINC OXIDE 20% TOPICAL OINTMENT 30 GM TUBE TP SCH (14:46)
[2021-12-29 15:14] VITALS: BMI 22.9
[2021-12-29] MEDS ORDERED: INSULIN (LEVEMIR) 100 UNITS/ML UNITS SQ ONE (16:35)
[2021-12-29] MEDS ORDERED: APIXABAN 5 MG TABLET PO SCH ×2 (22:00)
[2021-12-29] MEDS: CITALOPRAM HYDROBROMIDE 10 MG TABLET PO SCH (23:21)
[2021-12-30] MEDS: CLINDAMYCIN 600MG PREMIX IVPB 600 MG/50 ML BAG IVPB SCH ×3 (04:07→17:18)
[2021-12-30] MEDS: DEXTROSE 5%-NORMAL SALINE 1,000 ML IV SCH ×2 (09:32→17:17)
[2021-12-30] MEDS ORDERED: DEXTROSE 5%-WATER 100 ML IVPB ONE (09:36)
[2021-12-30] MEDS: ACETAMINOPHEN 650 MG/20.3 ML ORAL SOLUTION (CUPS) PO PRN (09:44)
[2021-12-30] MEDS: ENOXAPARIN NA (PORCINE) 40 MG/0.4 ML DISP.SYRIN SQ SCH (09:44)
[2021-12-30] MEDS: LEVOTHYROXINE SODIUM 100 MCG VIAL IVPUSH SCH (09:45)
[2021-12-30] MEDS: MULTIVITAMINS (DAILY MVI) TABLET (FP) PO SCH (09:45)
[2021-12-30] MEDS: COLLAGENASE CLOSTRIDIUM HIST. 30 GRAMS TUBE TP SCH (10:41)
[2021-12-30] MEDS: CEFTRIAXONE 2 GM in DEXTROSE 5%-WATER 100 ML IVPB SCH (10:43)
[2021-12-30] MEDS ORDERED: TRIMETHOBENZAMIDE HCL 200MG/2ML INJ IM PRN (13:20)
[2021-12-30] MEDS: CITALOPRAM HYDROBROMIDE 10 MG TABLET PO SCH (22:20)
[2021-12-31] MEDS: CLINDAMYCIN 600MG PREMIX IVPB 600 MG/50 ML BAG IVPB SCH ×3 (01:06→18:20)
[2021-12-31] MEDS: DEXTROSE 5%-NORMAL SALINE 1,000 ML IV SCH (05:11)
[2021-12-31] MEDS ORDERED: DEXTROSE 5%-WATER 100 ML IVPB ONE (09:35)
[2021-12-31] MEDS: ENOXAPARIN NA (PORCINE) 40 MG/0.4 ML DISP.SYRIN SQ SCH (09:51)
[2021-12-31] MEDS: LEVOTHYROXINE SODIUM 100 MCG VIAL IVPUSH SCH (09:51)
[2021-12-31] MEDS: COLLAGENASE CLOSTRIDIUM HIST. 30 GRAMS TUBE TP SCH (09:52)
[2021-12-31] MEDS: MULTIVITAMINS (DAILY MVI) TABLET (FP) PO SCH (09:52)
[2021-12-31] MEDS: CEFTRIAXONE 2 GM in DEXTROSE 5%-WATER 100 ML IVPB SCH (10:53)
[2021-12-31] MEDS: AMINO ACIDS 4.25%/D5W 1,000 ML IV SCH (12:27)
[2021-12-31] MEDS: CITALOPRAM HYDROBROMIDE 10 MG TABLET PO SCH (21:45)
[2021-12-31] MEDS: ACETAMINOPHEN 325 MG TABLET (FP) PO PRN (21:46)
[2022-01-01] MEDS: CLINDAMYCIN 600MG PREMIX IVPB 600 MG/50 ML BAG IVPB SCH ×3 (01:54→18:19)
[2022-01-01] MEDS ORDERED: DEXTROSE 5%-WATER 100 ML IVPB ONE (09:26)
[2022-01-01] MEDS: COLLAGENASE CLOSTRIDIUM HIST. 30 GRAMS TUBE TP SCH (09:44)
[2022-01-01] MEDS: LEVOTHYROXINE SODIUM 100 MCG VIAL IVPUSH SCH (09:44)
[2022-01-01] MEDS: MULTIVITAMINS (DAILY MVI) TABLET (FP) PO SCH (09:44)
[2022-01-01] MEDS: ENOXAPARIN NA (PORCINE) 40 MG/0.4 ML DISP.SYRIN SQ SCH (09:44)
[2022-01-01] MEDS: CEFTRIAXONE 2 GM in DEXTROSE 5%-WATER 100 ML IVPB SCH (10:24)
[2022-01-01 11:27] LABS: BASO % 0.4 % (0-2.0); HEMATOCRIT 33.4 % (32.4-45.2); HEMOGLOBIN 11.1 GM/dL (10.7-15.3); LYMPH % 23.6 % (8-40); MCH 29.8 pg (25.7-33.7); MCHC 33.3 g/dl (32.0-36.0); MEAN CELL VOLUME 89.7 fl (80-96); MEAN PLT VOLUME 9.2 fl (7.5-11.1); MONO % 6.5 % (3.8-10.2); NEUT % 67.5 % (42.8-82.8); PLATELET COUNT 300 10^3/uL (134-434); RBC 3.72 M/mm3 (3.60-5.2); RDW 13.9 % (11.6-15.6); WHITE BLOOD COUNT 10.3 K/mm3 (4.0-10.0)
[2022-01-01 11:46] LABS: CALCIUM 8.8 mg/dL (8.5-10.1)
[2022-01-01 11:47] LABS: ALBUMIN 2.6 g/dl (3.4-5.0); BLOOD UREA NITROGEN 14.3 mg/dL (7-18)
[2022-01-01 11:50] LABS: CREATININE 0.6 mg/dL (0.55-1.3)
[2022-01-01 11:51] LABS: BILIRUBIN,TOTAL 0.4 mg/dL (0.2-1); TOT PROT 6.1 g/dl (6.4-8.2)
[2022-01-01] MEDS: AMINO ACIDS 4.25%/D5W 1,000 ML IV SCH (15:00)
[2022-01-01] MEDS: oxyCODONE HCL 5 MG TABLET PO PRN (15:06)
[2022-01-01] MEDS: LACTOBACILLUS ACIDOPHILUS 1 TABLET PO SCH (15:06)
[2022-01-01] MEDS: CITALOPRAM HYDROBROMIDE 10 MG TABLET PO SCH (21:51)
[2022-01-01] MEDS: ACETAMINOPHEN 325 MG TABLET (FP) PO PRN (21:51)
[2022-01-02] MEDS: CLINDAMYCIN 600MG PREMIX IVPB 600 MG/50 ML BAG IVPB SCH ×3 (02:05→17:20)
[2022-01-02 09:34] LABS: BASO % 0.5 % (0-2.0); HEMATOCRIT 35.9 % (32.4-45.2); HEMOGLOBIN 11.7 GM/dL (10.7-15.3); LYMPH % 24.4 % (8-40); MCH 29.2 pg (25.7-33.7); MCHC 32.7 g/dl (32.0-36.0); MEAN CELL VOLUME 89.5 fl (80-96); MEAN PLT VOLUME 9.6 fl (7.5-11.1); NEUT % 65.1 % (42.8-82.8); PLATELET COUNT 317 10^3/uL (134-434); RBC 4.01 M/mm3 (3.60-5.2); RDW 14.2 % (11.6-15.6); WHITE BLOOD COUNT 10.3 K/mm3 (4.0-10.0)
[2022-01-02 10:01] LABS: BLOOD UREA NITROGEN 14.7 mg/dL (7-18)
[2022-01-02 10:02] LABS: ALBUMIN 2.6 g/dl (3.4-5.0)
[2022-01-02 10:06] LABS: CREATININE 0.5 mg/dL (0.55-1.3)
[2022-01-02 10:07] LABS: BILIRUBIN,TOTAL 0.3 mg/dL (0.2-1); TOT PROT 6.3 g/dl (6.4-8.2)
[2022-01-02] MEDS ORDERED: DEXTROSE 5%-WATER 100 ML IVPB ONE (10:51)
[2022-01-02] MEDS: CEFTRIAXONE 2 GM in DEXTROSE 5%-WATER 100 ML IVPB SCH (10:53)
[2022-01-02] MEDS: LEVOTHYROXINE SODIUM 100 MCG VIAL IVPUSH SCH (10:54)
[2022-01-02] MEDS: ENOXAPARIN NA (PORCINE) 40 MG/0.4 ML DISP.SYRIN SQ SCH (10:54)
[2022-01-02] MEDS: LACTOBACILLUS ACIDOPHILUS 1 TABLET PO SCH (11:01)
[2022-01-02 11:32] LABS: ERYTHROCYTE SEDIMENTATION RATE 88 mm/hr (0-30)
[2022-01-02] MEDS: MULTIVITAMINS (DAILY MVI) TABLET (FP) PO SCH (12:24)
[2022-01-02] MEDS: AMINO ACIDS 4.25%/D5W 1,000 ML IV SCH (13:19)
[2022-01-02] MEDS: oxyCODONE HCL 5 MG TABLET PO PRN (18:44)
[2022-01-02] MEDS: CITALOPRAM HYDROBROMIDE 10 MG TABLET PO SCH (21:29)
[2022-01-03] MEDS: CLINDAMYCIN 600MG PREMIX IVPB 600 MG/50 ML BAG IVPB SCH ×3 (01:55→18:06)
[2022-01-03] MEDS: LEVOTHYROXINE NA 25 MCG TABLET (FP) PO SCH (06:00)
[2022-01-03] MEDS ORDERED: DEXTROSE 5%-WATER 100 ML IVPB ONE ×2 (09:53→14:44)
[2022-01-03] MEDS: ENOXAPARIN NA (PORCINE) 40 MG/0.4 ML DISP.SYRIN SQ SCH (09:56)
[2022-01-03] MEDS: oxyCODONE HCL 5 MG TABLET PO PRN ×2 (09:58→20:21)
[2022-01-03] MEDS: LACTOBACILLUS ACIDOPHILUS 1 TABLET PO SCH (09:58)
[2022-01-03] MEDS: MULTIVITAMINS (DAILY MVI) TABLET (FP) PO SCH (10:00)
[2022-01-03] MEDS: CEFTRIAXONE 2 GM in DEXTROSE 5%-WATER 100 ML IVPB SCH (14:54)
[2022-01-03] MEDS: CITALOPRAM HYDROBROMIDE 10 MG TABLET PO SCH (22:37)
[2022-01-04] MEDS: CLINDAMYCIN 600MG PREMIX IVPB 600 MG/50 ML BAG IVPB SCH ×2 (01:49→09:44)
[2022-01-04] MEDS: LEVOTHYROXINE NA 25 MCG TABLET (FP) PO SCH (07:01)
[2022-01-04] MEDS ORDERED: DEXTROSE 5%-WATER 100 ML IVPB ONE (09:39)
[2022-01-04 10:08] LABS: SARS-CoV-2 NAA Not Detected (Not Detected)
[2022-01-04] MEDS: ACETAMINOPHEN 325 MG TABLET (FP) PO PRN (10:10)
[2022-01-04] MEDS: ENOXAPARIN NA (PORCINE) 40 MG/0.4 ML DISP.SYRIN SQ SCH (10:11)
[2022-01-04] MEDS: LACTOBACILLUS ACIDOPHILUS 1 TABLET PO SCH (10:11)
[2022-01-04] MEDS: MULTIVITAMINS (DAILY MVI) TABLET (FP) PO SCH (10:11)
[2022-01-04] MEDS: CEFTRIAXONE 2 GM in DEXTROSE 5%-WATER 100 ML IVPB SCH (10:27)
[2022-01-04] MEDS ORDERED: ACETAMINOPHEN 1000 MG/100 ML BAG IVPB PRN (10:32)
[2022-01-04 14:07] VITALS: BP 147/119; PULSE 88; TEMP 95.6
== END 2022-01-04 18:01 | DRG 603 ==
LOC: JER 17:02 → JERBED 17:58 → J5S 12-28 04:02
PROVIDERS: ADMIT Hospitalist; ATTEND Internal Medicine
PROC: 0X9J3ZZ Drainage of Right Hand, Percutaneous Approach (ICD-10-PCS; principal; 2021-12-29)
DX: L03.113 Cellulitis of right upper limb (principal); F02.80 Dementia in other diseases classified elsewhere, unspecified severity, without behavioral disturbance, psychotic disturbance, mood disturbance, and anxiety; G30.9 Alzheimer's disease, unspecified; R13.10 Dysphagia, unspecified; F06.1 Catatonic disorder due to known physiological condition; W50.3XXA Accidental bite by another person, initial encounter; Z88.0 Allergy status to penicillin; E03.9 Hypothyroidism, unspecified; S61.250A Open bite of right index finger without damage to nail, initial encounter; Y93.9 Activity, unspecified; Y92.89 Other specified places as the place of occurrence of the external cause; Y99.9 Unspecified external cause status
CPT/HCPCS: 36415; 36569; 71045-TC-FY; 73130-TC-RT-FY; 80048; 80053; 82553; 82803; 83605; 83735; 85025; 85610; 85651; 85730; 86140; 87040; 87070; 87205; 93005; 93010; 99285-25; C9803; U0003; U0005

== ENCOUNTER 2025-01-21 16:50 | Inpatient (IN) | payer OTHER ==
[2025-01-21 18:16] LABS: BASO % 0.6 % (0-2.0); HEMATOCRIT 46.9 % (32.4-45.2); HEMOGLOBIN 14.9 GM/dL (10.7-15.3); LYMPH % 13.5 % (8-40); MCH 29.5 pg (25.7-33.7); MCHC 31.7 g/dl (32.0-36.0); MEAN CELL VOLUME 93.3 fl (80-96); MEAN PLT VOLUME 10.5 fl (7.5-11.1); MONO % 9.1 % (3.8-10.2); NEUT % 76.8 % (42.8-82.8); PLATELET COUNT 242 10^3/uL (134-434); RBC 5.03 M/mm3 (3.60-5.2); RDW 15.2 % (11.6-15.6); WHITE BLOOD COUNT 18.5 K/mm3 (4.0-10.0)
[2025-01-21] MEDS ORDERED: ALBUTEROL SO4 2.5/IPRATROPIUM 0.5 INH SOL 3 ML VIAL.NEB. NEB ONE (18:16)
[2025-01-21] MEDS ORDERED: ACETAMINOPHEN INJECTION 100 ML ONE (18:16)
[2025-01-21] MEDS ORDERED: PIPERACILLIN/TAZOB 3.375 GM 3.375 GM/50 ML BAG IVPB ONE (18:16)
[2025-01-21 18:24] LABS: INR 1.18 (0.83-1.09); PROTHROMBIN TIME (PATIENT) 12.9 SEC (9.7-13.0)
[2025-01-21 18:26] LABS: ACTIVATED PTT 25.7 SECONDS (25.2-36.5)
[2025-01-21 18:31] LABS: VENOUS BASE EXCESS -2.8 mmol/L (-2-2); VENOUS O2 SATURATION 89.2 % (70-80); VENOUS PCO2 31.8 mmHg (38-52); VENOUS PH 7.421 (7.310-7.410)
[2025-01-21 18:35] LABS: POTASSIUM 5.3 mmol/L (3.5-5.1)
[2025-01-21 18:37] LABS: ALBUMIN 3.3 g/dl (3.4-5.0); BLOOD UREA NITROGEN 29.3 mg/dL (7-18); CALCIUM 9.6 mg/dL (8.5-10.1)
[2025-01-21] MEDS: SODIUM CHLORIDE 0.9% 500 ML INFUS.BAG IV ONE ×2 (18:40→21:45)
[2025-01-21] MEDS: ACETAMINOPHEN 1000 MG/100 ML BAG IVPB ONE (18:40)
[2025-01-21 18:41] LABS: CREATININE 0.8 mg/dL (0.55-1.3)
[2025-01-21] MEDS: PIPERACILLIN/TAZOB 3.375 GM 3.375 GM in DEXTROSE 5%-WATER - 50 ML IVPB ONE (18:41)
[2025-01-21] MEDS: ALBUTEROL SO4 2.5/IPRATROPIUM 0.5 INH SOL 3 ML VIAL.NEB. NEB ONE (18:41)
[2025-01-21 18:42] LABS: TOT PROT 7.8 g/dl (6.4-8.2)
[2025-01-21] MEDS: VANCOMYCIN HCL IN 5 % DEXTROSE 1,500 MG/300 ML BAG IVPB ONE (18:54)
[2025-01-21 19:04] LABS: LACTIC ACID 2.9 mmol/L (0.4-2.0)
[2025-01-21] MEDS: VANCOMYCIN HCL 1,500 MG in DEXTROSE 5%-WATER - 500 ML IVPB ONE (19:24)
[2025-01-21] MEDS ORDERED: FENTANYL CITRATE/PF 50 MCG/ML VIAL ONE (21:42)
[2025-01-21 22:20] LABS: URINE APPEARANCE CLEAR; URINE BILIRUBIN NEGATIVE (NEGATIVE); URINE COLOR DK YELLOW; URINE GLUCOSE (UA) NEGATIVE (NEGATIVE); URINE KETONE TRACE (NEGATIVE); URINE LEUK ESTERASE NEGATIVE (NEGATIVE); URINE NITRITE NEGATIVE (NEGATIVE); URINE PROTEIN 100 (NEGATIVE)
[2025-01-21 23:53] LABS: POTASSIUM 3.9 mmol/L (3.5-5.1)
[2025-01-21 23:54] LABS: BLOOD UREA NITROGEN 22.7 mg/dL (7-18); CALCIUM 8.2 mg/dL (8.5-10.1)
[2025-01-21 23:58] LABS: CREATININE 0.6 mg/dL (0.55-1.3); LACTIC ACID 2.5 mmol/L (0.4-2.0); PHOSPHOROUS 2.9 mg/dL (2.5-4.9)
[2025-01-22] MEDS: DEXTROSE 5%-0.45% SALINE 1,000 ML IV SCH (00:02)
[2025-01-22] MEDS ORDERED: ACETAMINOPHEN 1000 MG/100 ML BAG IVPB PRN (00:40)
[2025-01-22] MEDS ORDERED: PIPERACILLIN/TAZOB 3.375 GM 3.375 GM/50 ML BAG IVPB ONE ×2 (04:05→07:42)
[2025-01-22] MEDS: PIPERACILLIN/TAZOB 3.375 GM 3.375 GM/50 ML BAG IVPB SCH (04:07)
[2025-01-22 05:52] LABS: BASO % 0.4 % (0-2.0); EOS % 0.2 % (0-4.5); HEMATOCRIT 38.9 % (32.4-45.2); HEMOGLOBIN 12.4 GM/dL (10.7-15.3); LYMPH % 15.4 % (8-40); MCH 29.5 pg (25.7-33.7); MCHC 31.7 g/dl (32.0-36.0); MEAN CELL VOLUME 93.1 fl (80-96); MEAN PLT VOLUME 10.3 fl (7.5-11.1); MONO % 5.7 % (3.8-10.2); NEUT % 78.3 % (42.8-82.8); PLATELET COUNT 169 10^3/uL (134-434); RBC 4.18 M/mm3 (3.60-5.2); RDW 15.2 % (11.6-15.6); WHITE BLOOD COUNT 16.8 K/mm3 (4.0-10.0)
[2025-01-22 06:08] LABS: POTASSIUM 3.8 mmol/L (3.5-5.1)
[2025-01-22 06:11] LABS: BLOOD UREA NITROGEN 19.1 mg/dL (7-18)
[2025-01-22 06:12] LABS: ALBUMIN 2.5 g/dl (3.4-5.0)
[2025-01-22 06:14] LABS: CREATININE 0.5 mg/dL (0.55-1.3)
[2025-01-22 06:15] LABS: TOT PROT 5.8 g/dl (6.4-8.2)
[2025-01-22 06:30] LABS: BILIRUBIN,TOTAL 1.1 mg/dL (0.2-1); LACTIC ACID 2.2 mmol/L (0.4-2.0)
[2025-01-22] MEDS ORDERED: ALBUTEROL SO4 2.5/IPRATROPIUM 0.5 INH SOL 3 ML VIAL.NEB. NEB PRN (07:41)
[2025-01-22] MEDS ORDERED: VANCOMYCIN 1 GM PREMIX (F) 1 GM/200 ML BAG ONE (07:42)
[2025-01-22] MEDS: VANCOMYCIN 1 GM PREMIX (F) 1,000 MG/200 ML BAG IVPB SCH (09:27)
[2025-01-22 11:17] LABS: LACTIC ACID 2.6 mmol/L (0.4-2.0)
[2025-01-22 13:39] LABS: LACTIC ACID 2.4 mmol/L (0.4-2.0)
[2025-01-22] MEDS: methylPREDNISolone NA SUCC 40 MG/1 ML VIAL IVPUSH SCH (14:17)
[2025-01-22] MEDS: VANCOMYCIN 1,000 MG in DEXTROSE 5%-WATER - 250 ML IVPB SCH (16:32)
[2025-01-22 17:20] LABS: LACTIC ACID 2.4 mmol/L (0.4-2.0)
[2025-01-22] MEDS: PIPERACILLIN/TAZOB 3.375 GM 50 ML IVPB SCH (17:50)
[2025-01-22 19:22] LABS: LACTIC ACID 2.9 mmol/L (0.4-2.0)
[2025-01-22] MEDS: LACTATED RINGERS SOLUTION 1,000 ML/1,000 ML INFUS.BAG IV SCH (21:22)
[2025-01-23 07:57] LABS: BASO % 0.2 % (0-2.0); HEMATOCRIT 35.7 % (32.4-45.2); HEMOGLOBIN 11.9 GM/dL (10.7-15.3); MCH 30.4 pg (25.7-33.7); MCHC 33.2 g/dl (32.0-36.0); MEAN CELL VOLUME 91.7 fl (80-96); MEAN PLT VOLUME 11.2 fl (7.5-11.1); MONO % 5.5 % (3.8-10.2); NEUT % 83.3 % (42.8-82.8); PLATELET COUNT 166 10^3/uL (134-434); RDW 14.4 % (11.6-15.6); WHITE BLOOD COUNT 18.3 K/mm3 (4.0-10.0)
[2025-01-23 08:15] LABS: POTASSIUM 3.9 mmol/L (3.5-5.1)
[2025-01-23 08:25] LABS: CALCIUM 8.6 mg/dL (8.5-10.1)
[2025-01-23 08:26] LABS: ALBUMIN 2.3 g/dl (3.4-5.0); BLOOD UREA NITROGEN 16.6 mg/dL (7-18)
[2025-01-23 08:29] LABS: CREATININE 0.6 mg/dL (0.55-1.3)
[2025-01-23 08:31] LABS: BILIRUBIN,TOTAL 0.6 mg/dL (0.2-1); TOT PROT 5.5 g/dl (6.4-8.2)
[2025-01-23 08:38] LABS: LACTIC ACID 2.4 mmol/L (0.4-2.0)
[2025-01-23] MEDS: AMINO ACIDS 4.25%/D5W 2,000 ML IV SCH (13:33)
[2025-01-23] MEDS: AMINO ACIDS 4.25%/D5W 1,000 ML IV SCH (13:35)
[2025-01-23] MEDS: FAT EMULSION/OLIVE/SOY/PHOSPHO 250 ML IV SCH (21:00)
[2025-01-23] MEDS ORDERED: FAT EMULSION/OLIVE/SOY (CLINOLIPID) 250 ML EMULSION IV SCH (22:00)
[2025-01-24] MEDS ORDERED: PIPERACILLIN/TAZOB 3.375 GM 50 ML IVPB SCH (03:00)
[2025-01-24 09:46] VITALS: BMI 26.6
[2025-01-24] MEDS ORDERED: ALBUTEROL SO4 2.5/IPRATROPIUM 0.5 INH SOL 3 ML VIAL.NEB. NEB PRN (21:29)
[2025-01-24] MEDS: DEXTROSE 5%-0.45% SALINE 1,000 ML IV SCH (23:17)
[2025-01-26 08:19] LABS: HEMOGLOBIN 11.2 GM/dL (10.7-15.3); MCHC 32.8 g/dl (32.0-36.0); MEAN CELL VOLUME 91.4 fl (80-96); MEAN PLT VOLUME 10.2 fl (7.5-11.1); PLATELET COUNT 216 10^3/uL (134-434); RBC 3.72 M/mm3 (3.60-5.2); RDW 13.8 % (11.6-15.6); WHITE BLOOD COUNT 12.4 K/mm3 (4.0-10.0)
[2025-01-26 08:38] LABS: CHLORIDE 113 mmol/L (98-107); SODIUM 139 mmol/L (136-145)
[2025-01-26 08:42] LABS: ALBUMIN 2.3 g/dl (3.4-5.0); BLOOD UREA NITROGEN 17.9 mg/dL (7-18); GLUCOSE,RANDOM 134 mg/dL (74-106)
[2025-01-26 08:43] LABS: CALCIUM 8.1 mg/dL (8.5-10.1); CO2 24 mmol/L (21-32)
[2025-01-26 08:45] LABS: SGOT/AST 34 U/L (15-37); SGPT/ALT 40 U/L (13-61)
[2025-01-26 08:46] LABS: TOT PROT 5.5 g/dl (6.4-8.2)
[2025-01-26 08:47] LABS: BILIRUBIN,TOTAL 0.4 mg/dL (0.2-1)
[2025-01-26 08:48] LABS: ALK PHOS 61 U/L (45-117)
[2025-01-26 09:07] LABS: ANION GAP 2 mmol/L (4-13); CREATININE 0.5 mg/dL (0.55-1.3); POTASSIUM 2.8 mmol/L (3.5-5.1)
[2025-01-26] MEDS: KCL 10 MEQ IVPB 10 MEQ/100 ML INFUS.BAG IVPB SCH ×2 (10:49→22:23)
[2025-01-26 11:41] LABS: ANISOCYTOSIS 0; MACROCYTOSIS 0
[2025-01-26 15:34] LABS: POTASSIUM 3.3 mmol/L (3.5-5.1)
[2025-01-26 15:36] LABS: BLOOD UREA NITROGEN 15.5 mg/dL (7-18); CALCIUM 8.7 mg/dL (8.5-10.1)
[2025-01-26 15:40] LABS: CREATININE 0.5 mg/dL (0.55-1.3)
[2025-01-27 11:16] LABS: POTASSIUM 3.3 mmol/L (3.5-5.1)
[2025-01-27 11:22] LABS: CALCIUM 8.8 mg/dL (8.5-10.1)
[2025-01-27 11:23] LABS: ALBUMIN 2.5 g/dl (3.4-5.0); BLOOD UREA NITROGEN 20.2 mg/dL (7-18)
[2025-01-27 11:25] LABS: CREATININE 0.5 mg/dL (0.55-1.3)
[2025-01-27 11:27] LABS: BILIRUBIN,TOTAL 0.3 mg/dL (0.2-1); TOT PROT 5.7 g/dl (6.4-8.2)
[2025-01-27] MEDS: KCL 10 MEQ IVPB 10 MEQ/100 ML INFUS.BAG IVPB SCH (13:06)
[2025-01-28 07:56] LABS: HEMATOCRIT 40.8 % (32.4-45.2); HEMOGLOBIN 13.5 GM/dL (10.7-15.3); MCH 29.9 pg (25.7-33.7); MEAN CELL VOLUME 90.7 fl (80-96); MEAN PLT VOLUME 9.8 fl (7.5-11.1); PLATELET COUNT 272 10^3/uL (134-434); RDW 14.3 % (11.6-15.6); WHITE BLOOD COUNT 14.2 K/mm3 (4.0-10.0)
[2025-01-28 08:16] LABS: POTASSIUM 3.6 mmol/L (3.5-5.1)
[2025-01-28 08:18] LABS: BLOOD UREA NITROGEN 20.3 mg/dL (7-18); CALCIUM 8.9 mg/dL (8.5-10.1)
[2025-01-28 08:19] LABS: ALBUMIN 2.7 g/dl (3.4-5.0)
[2025-01-28 08:22] LABS: CREATININE 0.5 mg/dL (0.55-1.3)
[2025-01-28 08:23] LABS: BILIRUBIN,TOTAL 0.3 mg/dL (0.2-1); TOT PROT 6.2 g/dl (6.4-8.2)
[2025-01-28 11:59] LABS: ANISOCYTOSIS 1+; MACROCYTOSIS 1+
[2025-01-28] MEDS: AMOX TR/POT CLAV 500MG/125MG TABLETS (FP) PO SCH (17:00)
[2025-01-28 22:18] VITALS: BP 126/70; PULSE 91; RESP 20; TEMP 98.7
== END 2025-01-28 23:29 | DRG 871 ==
LOC: JER 16:50 → OBSVTOIN 21:35 → JERBED 21:35 → J4W 01-22 11:11 → J7W 01-24 21:40
PROVIDERS: ADMIT Internal Medicine; ATTEND Internal Medicine
DX: A41.9 Sepsis, unspecified organism (principal); J18.9 Pneumonia, unspecified organism; J69.0 Pneumonitis due to inhalation of food and vomit; J96.01 Acute respiratory failure with hypoxia; E87.20 Acidosis, unspecified; F02.818 Dementia in other diseases classified elsewhere, unspecified severity, with other behavioral disturbance; G30.9 Alzheimer's disease, unspecified; J44.9 Chronic obstructive pulmonary disease, unspecified; I25.10 Atherosclerotic heart disease of native coronary artery without angina pectoris; E03.9 Hypothyroidism, unspecified
CPT/HCPCS: 0241U-QW; 36415; 71045-TC-FY; 80048; 80053; 81003; 82803; 83605; 83735; 84100; 84439; 84443; 84484; 85025; 85610; 85730; 86850; 86900; 86901; 87040; 87086; 87635; 93005; 93010; 99285-25; J0131